=== PATIENT | female | born 1995 ===

== ENCOUNTER → 2023-04-24 13:42 | Outpatient (CLI) | payer SELFPAY ==
--- NOTE | ~2023-04-24 | US_ITS ---
EXAMINATION: US pelvic complete w TV DATE: 04/24/2023 14:23 INDICATION: Unspecified ovarian cyst. TECHNIQUE: Multiple transabdominal and transvaginal sonographic images of the pelvis were obtained. COMPARISON: None. FINDINGS: TRANSABDOMINAL ULTRASOUND: The uterus measures 9.7 x 5.4 x 6.0 cm. There is no free fluid in the pelvis. TRANSVAGINAL ULTRASOUND: The endometrial complex measures 6 mm in thickness. There are multiple uterine fibroids. An intramura l fibroid measures 4.1 cm. An intramural fibroid measures 3.2 cm. An intramural fibroid measures 3.6 cm. A subserosal fibroid measures 1.2 cm. A subserosal fibroid measures 4.4 cm. The right ovary measu res 4.7 x 3.2 x 3.9 cm. The left ovary measures 4.1 x 2.4 x 3.5 cm. IMPRESSION: 1. Uterine fibroids. Reviewed, dictated and finalized at location A. IMPRESSION: 1. Uterine fibroids.
== END ==
PROVIDERS: PCP Nurse Practitioner; Visit Provider Nurse Practitioner
DX: N83.201 Unspecified ovarian cyst, right side (principal); D25.1 Intramural leiomyoma of uterus
CPT/HCPCS: 76830; 76856